=== PATIENT | male | born 1975 | race Caucasian/White ===

== ENCOUNTER 2024-08-05 12:32 | Outpatient (REF) | payer MEDICARE, SELFPAY ==
--- NOTE | ~2024-08-05 | CT_ITS ---
CLINICAL HISTORY: Unspecified intracranial injury with loss of consciousness, TBI CT head without contrast Comparison: None Findings: No intra-axial mass, midline shift, hydrocephalus, or acute hemorrhage. Right frontal encephalomalacia. No significant atrophy-like change or white matter disease. There is no sinus or mastoid fluid. The orbits are within normal limits. There is no acute fracture. IMPRESSION: 1. No acute intracranial findings. Old right frontal infarct. 2. No acute intracranial hemorrhage or skull fracture. This document has been electronically signed by: Lina Snyder MD on 08/08/2024 08:47:28
== END 2024-08-05 12:33 | disposition home or self-care (01) ==
LOC: HO.CT 12:32
PROVIDERS: PCP Internal Medicine; Visit Provider Psychiatry & Neurology Neurology
DX: S06.9X9D Unspecified intracranial injury with loss of consciousness of unspecified duration, subsequent encounter (principal); H53.2 Diplopia
CPT/HCPCS: 70450

== ENCOUNTER → 2024-08-05 12:36 | Outpatient (BNV) | payer MEDICARE, SELFPAY | PROVIDERS: PCP Internal Medicine; Visit Provider Radiology Diagnostic Radiology | DX: S06.9X9A Unspecified intracranial injury with loss of consciousness of unspecified duration, initial encounter (principal) | CPT/HCPCS: 70450 ==

== ENCOUNTER 2024-08-16 10:16 | Outpatient (REF) | payer MEDICARE, SELFPAY ==
[2024-08-20 02:04] LABS: Acetylcholine Receptor Binding <0.30 nmol/L
[2024-08-20 19:59] LABS: Acetylcholine Recep Modulating 21
== END 2024-08-16 10:17 | disposition home or self-care (01) ==
LOC: HO.LAB 10:16
PROVIDERS: Visit Provider Psychiatry & Neurology Neurology
DX: S06.9X9A Unspecified intracranial injury with loss of consciousness of unspecified duration, initial encounter (principal)
CPT/HCPCS: 36415; 82550; 86041; 86043

== ENCOUNTER 2024-12-19 11:14 | Outpatient (AMB) | payer MEDICARE, MEDICAID, SELFPAY ==
--- OUTSIDE RECORDS SUMMARY | 2023-07-28 07:00 | XMS_ITS ---
Author Organization [facility], [place] Address [address] [place] [address] Care Team Providers Care Air Traffic Supervisor Name Role Phone Migration, Provider Unavailable Unavailable REASON FOR VISIT CPX Encounters Encounter Location Date Provider Diagnosis [facility], [place] [address] [place] [address] 07/28/2023 Provider Migration Plan Of Treatment Next Appt Details Provider Name:Mildred Nj, 12/22/2024 02:45:00 PM, [address] [place] [address], [address] [facility], [place], [address], [phone] Progress Notes * SHAHZAD THOMPSONQAMAROB:1975 (49 yo M)Acc No.[id number]:07/28/2023 Progress Notes Patient: VIVIAN AUSTIN Provider: Ramesh Orozco :1975 A ge:48 Y S ex:Male Date:07/28/2023 Phone: Address:[address] [place], [place] [address] Subjective: * Chief Complaints: * C PX * Ocular Surgical History: Objective: Vision Examination: * Electronic signature of Prov ider Migration on 12/19/2024 at 01:57 PM EDT Sign off status: Pending * Provider: Ramesh chawla Migration Date: 0 07/28/2023 Generated for Lucina parr/Eze/eTransmitting on: 0 12/19/2024 01:57 PM EDT
--- OUTSIDE RECORDS SUMMARY | 2024-08-08 10:45 | XMS_ITS ---
Author Organization [facility], [place] Address [address] [facility] [address] [place] [address] Care Team Providers Care Food Beverage Server Name Role Phone Jovany Kaiser Unavailable [phone] REASON FOR VISIT Sick Visit Encounters Encounter Location Date Provider Diagnosis [facility] [place] [address] [facility] [address] [place] [address] 08/08/2024 Jovany Kaiser Plan Of Treatment Next Appt Details Provider Name:Mildred Nj, 12/22/2024 02:45:00 PM, [address] [facility], [address] [facility], [place], [address], [phone] Progress Notes * SHAWN THOMPSONOB:1975 (49 yo M)Acc No.[id number]:08/08/2024 Progress Notes Patient: VIVIAN AUSTIN Provider: Jameson HODGE :1975 A ge:49 Y S ex:Male Date:08/08/2024 Phone: Address:[address] [place], [place] [phone] Subjective: * Chief Complaints: * S ick Visit * Ocular Surgical History: Objective: Vision Examination: * Electronic signature of Rick Kaiser PA-C on 12/19/2024 at 01:57 PM EDT Sign off status: Pending * Provider: Jameson HODGE Date: 0 08/08/2024 Generated for Lucina parr/Eze/Yudelkaitting on: 0 12/19/2024 01:57 PM EDT
--- OUTSIDE RECORDS SUMMARY | 2024-12-08 06:00 | XMS_ITS ---
Author Organization [facility], [place] Address [address] [place] [address] Care Team Providers Care Test Equipment Mechanic Name Role Phone Mildred Nj Unavailable [phone] REASON FOR VISIT Follow-up Appt Encounters Encounter Location Date Provider Diagnosis [facility], [address] [facility] [address] [place] [phone] 12/08/2024 Mildred Clem Plan Of Treatment Next Appt Details Provider Name:Mildred Nj, 12/22/2024 02:45:00 PM, [address] [facility], Suite [facility], [place], [address], [phone] Progress Notes * SHAWN THOMPSONOB:1975 (49 yo M)Acc No.[id number]:12/08/2024 Progress Notes Patient: VIVIAN AUSTIN Provider: Mirela Nj :1975 A ge:49 Y S ex:Male Date:12/08/2024 Phone: Address:[address] [place], [place] [phone] Subjective: * Chief Complaints: * F ollow-up Appt * Electronic signature of [place] Nj on 12/19/2024 at 01:57 PM EDT Sign off status: Pending * Provider: Mirela Nj Date: 0 12/08/2024 Generated for Ildai ng/Eze/eTransmitting on: 12/19/2024 01:57 PM EDT
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
--- OUTSIDE RECORDS SUMMARY | 2024-12-19 13:57 | XMS_ITS | Patient Health Record ---
Author Organization [facility], [place] Address [address] [place] [address] Care Team Providers Care Coconut Cooker Name Role Phone Jovany Kaiser Unavailable [phone] Migration, Provider Unavailable Unavailable Mildred Nj Unavailable [phone] Reason For Referral No Information Encounters Encounter Location Date Provider Diagnosis [facility], [address] [place] [phone] 08/08/2024 Jovany Kaiser Plan Of Treatment Next Appt Details Provider Name:Mildred Bañuelosignacio, 12/22/2024 02:45:00 PM, [address] [facility], [address], [place], [address], [phone] Insurance Providers Payer Name Payer Address Payer Phone Subscriber Number Group Number Insured Name Patient Relationship to Insured Coverage Start Date Coverage End Date [employer] [address] [place] [phone] [id number] AUGUSTVIVIAN Self - patient is the insured [facility] Health Sec To Medicare [address] [place] [phone] [id number] AUGUSTVIVIAN Self - patient is the insured
--- OUTSIDE RECORDS SUMMARY | 2024-12-19 13:57 | XMS_ITS ---
Author Name [facility] Organization Unknown Encounters Encounter Type Encounter Reason Primary Diagnosis Location Date Ambulatory [facility] 02/09/2024 Care Team Organization Name Specialty Phone Email Start Date End [facility] 08/06/2024 [facility] 10/29/2023 [facility] 12/18/2022
== END 2024-12-19 11:42 | disposition home or self-care (01) ==
PROVIDERS: PCP Internal Medicine; Visit Provider Registered Nurse
DX: G44.209 Tension-type headache, unspecified, not intractable (principal); R42 Dizziness and giddiness; S06.9XAS Unspecified intracranial injury with loss of consciousness status unknown, sequela; H53.2 Diplopia
CPT/HCPCS: 99214

== ENCOUNTER → 2024-12-19 11:14 | Outpatient (BNVA) | payer MEDICARE, MEDICAID, SELFPAY | PROVIDERS: PCP Internal Medicine; Visit Provider Registered Nurse | DX: H53.2 Diplopia (principal); G44.209 Tension-type headache, unspecified, not intractable; R42 Dizziness and giddiness; S06.9XAS Unspecified intracranial injury with loss of consciousness status unknown, sequela; V43.92XS Unspecified car occupant injured in collision with other type car in traffic accident, sequela | CPT/HCPCS: 99212 ==